=== PATIENT | male | born 1945 | race Caucasian/White ===

== ENCOUNTER 2018-10-04 10:12 | Observation (INO) | payer MEDICARE, OTHER ==
[2018-10-04] MEDS ORDERED: Nitroglycerin TAB 0.4 MG* 0.4 MG TAB SL ONE (10:37)
--- NOTE | 2018-10-04 10:37 | ED ---
HPI Chest Pain - HPI Summary HPI Summary: 73 year old M presenting to [facility] complains of midsternal chest pain that has subsided to mild discomfort that does not radiate to back since 04:00 this morning while sleeping. The patient rates the pain 2/10 in severity. Symptoms aggravated by nothing. Symptoms alleviated by nothing. Patient reports left elbow pain. He also reports shortness of breath while coming up the stairs last night. Patient denies fever, chills, erythema of eyes, sore throat, cough, abdominal pain, nausea, vomiting, dysuria, hematuria, myalgia, edema, rash, and dizziness. 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 Patient notes similar episode in [place], [place] 3 weeks ago. He had an angiogram done there and was put on BP medication that has provided relief. - History of Current Complaint Chief Complaint: EDChestPainROMI Time Seen by Provider: 10/04/18 10:27 Hx Obtained From: Patient Onset/Duration: Started Hours Ago - 6, Still Present Current Severity: Mild Pain Intensity: 2 Pain Scale Used: 0-10 Numeric Chest Pain Location: Mid Sternal Chest Pain Radiates: No Aggravating Factor(s): Nothing Alleviating Factor(s): Nothing Associated Signs and Symptoms: Positive: Negative - fever, chills, erythema of eyes, sore throat, cough, abdominal pain, nausea, vomiting, dysuria, hematuria, myalgia, edema, rash, and dizziness., Other: - left elbow pain, reports shortness of breath while coming up the stairs last night - Allergy/Home Medications Allergies/Adverse Reactions: Allergies Allergy/AdvReac Type Severity Reaction Status Date / Time No Known Allergies Allergy Verified 10/04/18 10:20 Home Medications: Home Medications Aspirin [Aspirin EC] 81 mg PO DAILY 10/04/18 [History Confirmed 10/04/18] Atorvastatin* [Lipitor*] 20 mg PO DAILY 10/04/18 [History Confirmed 10/04/18] Clopidogrel TAB* [Plavix TAB*] 75 mg PO DAILY 10/04/18 [History Confirmed ] Isosorbide Mononitrate ER TAB* [Imdur ER TAB*] 15 mg PO DAILY 10/04/18 [History Confirmed 10/04/18] PMH/Surg Hx/FS Hx/Imm Hx Endocrine/Hematology History: Denies: Hx Diabetes Sensory History: Reports: Hx Contacts or Glasses - OCC GLASSES Denies: Hx Hearing Aid Opthamlomology History: Reports: Hx Contacts or Glasses - OCC GLASSES - Cancer History Cancer Type, Location and Year: NON-HODGKINS LYMPHOMA 2011 Hx Chemotherapy: Yes - 2010 - Surgical History Surgery Procedure, Year, and Place: APPENDECTOMY A CHILD Hx Anesthesia Reactions: No Infectious Disease History: No Infectious Disease History: Denies: Traveled Outside the [place] in Last 30 Days - Family History Known Family History: Positive: Cardiac Disease - grandfather of [place], Diabetes - father - Social History Alcohol Use: Occasionally Substance Use Type: Reports: None Smoking Status (MU): Former Smoker Have You Smoked in the Last Year: No Review of Systems Negative: Fever, Chills Negative: Erythema Negative: Sore Throat Positive: Chest Pain Positive: Shortness Of Breath. Negative: Cough Negative: Abdominal Pain, Vomiting, Nausea Negative: dysuria, hematuria Positive: Other - left elbow pain. Negative: Myalgia, Edema Negative: Rash Neurological: Negative - Dizziness All Other Systems Reviewed And Are Negative: Yes Physical Exam - Summary Physical Exam Summary: Constitutional: Well-developed, Well-nourished, Alert. (-) Distressed Skin: Warm, Dry HENT: Normocephalic; Atraumatic Eyes: Conjunctiva normal Neck: Musculoskeletal ROM normal neck. (-) JVD, (-) Stridor, (-) Tracheal deviation Cardio: Rhythm regular, rate normal, Heart sounds normal; Intact distal pulses; The pedal pulses are 2+ and symmetric. Radial pulses are 2+ and symmetric. (-) Murmur Pulmonary/Chest wall: Effort normal. (-) Respiratory distress, (-) Wheezes, (-) Rales Abd: Soft, (-) tenderness, (-) Distension, (-) Guarding, (-) Rebound Musculoskeletal: (-) Edema Lymph: (-) Cervical adenopathy Neuro: Alert, Oriented x3 Psych: Mood and affect Normal Triage Information Reviewed: Yes Vital Signs On Initial Exam: Initial Vitals Temp Pulse Resp BP Pulse Ox 97.9 F 65 16 106/83 100 10/04/18 10:16 10/04/18 10:16 10/04/18 10:16 10/04/18 10:16 10/04/18 10:16 Vital Signs Reviewed: Yes Diagnostics - Vital Signs Vital Signs Temp Pulse Resp BP Pulse Ox 10/04/18 10:16 97.9 F 65 16 106/83 100 - Laboratory Result Diagrams: 10/04/18 11:00 10/04/18 11:00 Lab Statement: Any lab studies that have been ordered have been reviewed, and results considered in the medical decision making process. - Radiology CXR Radiology Interpretation Completed By: Radiologist Summary of Radiographic Findings: 1. Stigmata of obstructive lung disease. 2. No radiographic findings to suggest thoracic lymphadenopathy. 3. No acute cardiopulmonary process evident. ED physician has reviewed this report. - EKG 1025 Cardiac Rate: Bradycardia - 49 BPM EKG Rhythm: Sinus Bradycardia Summary of EKG Findings: NONSTEMI - Additional Comments Diagnostic Additional Comments: CTA CHEST shows 1. Negative for pulmonary embolism. 2. No evidence for acute intrathoracic disease. 3. Negative for thoracic lymphadenopathy. 4. Incidental note of bilateral small nonobstructing calyceal renal stones at the partially visualized kidneys. ED physician has reviewed this report. Re-Evaluation - Re-Evaluation First Eval Re-Evaluation Time: 12:01 Change: Improved Comment: Patient rates 1/10 chest pressure. Chest Pain Course/Dx - Course Course Of Treatment: 73 year old M presenting to [facility] complains of midsternal chest pain that has subsided to mild discomfort that does not radiate to back since 04:00 this morning while sleeping. Reviewed outside medical records from [facility] in [place]. Patient had cardiac catherization on 09/08/18 which was normal other than 50% stenosis of the mid left circumflex. CXR showed 1. Stigmata of obstructive lung disease. 2. No radiographic findings to suggest thoracic lymphadenopathy. 3. No acute cardiopulmonary process evident. CTA CHEST shows 1. Negative for pulmonary embolism. 2. No evidence for acute intrathoracic disease. 3. Negative for thoracic lymphadenopathy. 4. Incidental note of bilateral small nonobstructing calyceal renal stones at the partially visualized kidneys. Labs were remarkable for troponin 0.04. In ED course, patient was given NTG. Spoke with Dr. Sinha, hospitalist, who agrees to admit patient. The patient will be admitted to the hospitalist. He is agreeable to this plan. - Diagnoses Provider Diagnoses: Unstable angina - Provider Notifications Discussed Care Of Patient With: Courtney Sinha Time Discussed With Above Provider: 14:30 Instructed by Provider To: Other - Dr. Sinha, hospitalist, agrees to admit patient. Discharge - Sign-Out/Discharge Documenting (check all that apply): Patient Departure - Admit Patient Received Moderate/Deep Sedation with Procedure: No - Discharge Plan Condition: Stable Disposition: ADMITTED TO [facility] Referrals: Matthew Adam MD [Primary Care Provider] - - Attestation Statements Document Initiated by Scribe: Yes Documenting Scribe: Lacey Watt Provider For Whom Scribe is Documenting (Include Credential): Zain Mcintyre MD Scribe Attestation: I, Lacey Watt, scribed for Zain Mcintyre MD on 10/04/18 at 1554. Status of Scribe Document: Ready
[2018-10-04 11:09] LABS: ABS Basophils 0 10^3/ul (0-0.2); ABS Eosinophils 0.1 10^3/ul (0-0.6); ABS Monocytes 0.4 10^3/ul (0-0.8); ABS Neutrophils 2.8 10^3/ul (1.5-7.7); ABS Nucleated RBC 0 10^3/ul; Eosinophil % 2.6 %; Hematocrit 39 % (36-46); Hemoglobin 13.4 g/dL (14.0-18.0); Lymphocyte % 23.4 %; Mean Corpuscular HGB Conc 34 g/dL (31-36); Mean Corpuscular Hemoglobin 31 pg (27-31); Mean Corpuscular Volume 92 fL (80-94); Mean Platelet Volume 9.1 fL (7.4-10.4); Nucleated Red Blood Cells % 0.1; Platelet Count 188 10^3/uL (150-450); Red Cell Distribution Width 14 % (10.5-15); White Blood Count 4.4 10^3/uL (3.5-10.8)
[2018-10-04 11:30] LABS: Troponin I 0.03 ng/mL (<0.04)
[2018-10-04 11:33] LABS: Albumin 4.1 g/dL (3.2-5.2); Albumin/Globulin Ratio 1.5 (1-3); Calcium 9.2 mg/dL (8.6-10.3); EGFR African American 71.8 (>60); EGFR Non-African American 59.3 (>60); Globulin 2.7 g/dL (2-4); Potassium 4.1 mmol/L (3.5-5.0); Total Protein 6.8 g/dL (6.4-8.9)
[2018-10-04] MEDS ORDERED: Nitro 2% OINT* (Nitroglycerin) 1 INCH/PAK PAK TOPICAL ONE (11:40)
[2018-10-04] MEDS ORDERED: Iodixanol* (CONTRAST) 320 MG/ML 100 ML SDV IV ONE (12:06)
[2018-10-04 14:29] LABS: Troponin I 0.04 ng/mL (<0.04)
[2018-10-04] MEDS ORDERED: Acetaminophen TAB* 325 MG PO PRN (14:53)
[2018-10-04] MEDS ORDERED: Lidocaine 2% VISCOUS* 15 ML UDC PO ONE (14:57)
[2018-10-04] MEDS ORDERED: Al Hydrox/Mg Hydrox/Simet LIQ* 30 ML UDC PO ONE (14:57)
[2018-10-04] MEDS: Enoxaparin(*) 40 MG/0.4 ML SYR SUBCUT SCH (17:56)
--- NOTE | 2018-10-04 19:36 | HP ---
CC: Dr. Adam * HISTORY AND PHYSICAL: DATE OF ADMISSION: 10/04/18 PROVIDER: Shannon Merrill NP PRIMARY CARE PROVIDER: Matthew Adam MD ATTENDING PHYSICIAN WHILE IN THE HOSPITAL: Courtney Duvall MD * (dictated by Shannon Merrill NP) CHIEF COMPLAINT: Chest pain. HISTORY OF PRESENT ILLNESS: Mr. Shi is a 73-year-old male with a past medical history significant for CAD, hyperlipidemia, hypertension, history of non-Hodgkin's lymphoma, who recently returned from [place] approximately 1 week ago. The patient reports that approximately 2 to 3 weeks ago while in [place] on 09/10/18, he had a similar episode of chest pain. He reports the pain was in the midsternal chest, radiated to bilateral elbows, nothing made it better, nothing made it worse. He reports that it felt like a big ball in the center of his chest. Initially, he thought it was indigestion related to overeating, eating shrimp and having alcoholic beverage. The symptoms did not subside, so he presented to the emergency room in [place] for further evaluation. He was subsequently admitted, underwent an echocardiogram and a stress test and ultimately had a cardiac catheterization, which showed left main medium size without significant coronary artery disease, LAD medium size and transapical, several diagonals are seen, no significant disease, left circumflex medium size with mid 50% stenosis, and right coronary artery medium size and dominant with no significant disease. It also showed normal left-sided pressures and showed some small pulmonary artery fistulas, seen from the LAD an incidental finding. The patient reports that after the cardiac catheterization, he was discharged home on Plavix 75 mg p.o. daily, atorvastatin 20 mg p.o. daily, aspirin 81 mg p.o. daily, and isosorbide mononitrate 15 mg p.o. daily. The patient reports that since his discharge, he has been feeling well. They travelled to [place], again coming approximately 1 week ago. He reports that this morning, he woke with chest pain approximately 4 a.m., again feeling like a ball in his chest radiating to his left elbow. Reports the pain as a pressure. He reports that the pain in his elbow subsided before presentation to the emergency room. The patient reports that he was able to do yard work yesterday, raking, he states that he felt good. He did report a little bit of shortness of breath, but no chest pain and he did not get fatigued when raking the yard. He also reports that last evening when walking up a flight of stairs when he got to the top, he felt extremely short of breath and had stopped to catch his breath, but did walk up the stairs again later in the evening and did not have the same symptoms. The patient reports that the nitro did help. While in the emergency room, the patient had routine lab work drawn. He did receive nitro in the emergency room, which he does report relieved some of the pain but not completely. Due to the continued pressure in his chest and chest pain, we were asked to see and evaluate him for admission. PAST MEDICAL HISTORY: 1. Coronary artery disease, recent non-STEMI on 09/10/18. 2. Hyperlipidemia. 3. Hypertension. 4. History of non-Hodgkin's lymphoma. PAST SURGICAL HISTORY: 1. Appendectomy. 2. Prostatectomy. HOME MEDICATIONS: 1. Plavix 75 mg p.o. daily. 2. Atorvastatin 20 mg p.o. daily. 3. Imdur 15 mg p.o. daily. 4. Aspirin 81 mg p.o. daily. ALLERGIES: No known drug allergies. FAMILY HISTORY: Father with a history of an [place] at age 42, developed diabetes and due to diabetic complications at the age of 65. Paternal grandfather had an [place] at the age of 54. Maternal grandfather with laryngeal cancer. SOCIAL HISTORY: The patient reports that he smoked in his 20s for 4 to 5 years and then quit. He does report that he drinks 1 beer daily. He does report daily marijuana use. He is retired. , he lives with his . He is a full code. Surrogate decision maker in the event he is unable to make his own decisions is his . REVIEW OF SYSTEMS: He denies any fevers, chills, unintended weight loss. He does report midsternal chest pain that feels like a pressure in his chest, radiates to his left elbow. Denies any cough or hemoptysis. He does report some mild shortness of breath with exertion, most notable when walking upstairs. Denies any nausea, vomiting, diarrhea, abdominal pain, gross hematuria, dysuria, focal weakness or sensory loss. Denies any arthralgias, myalgias, rashes, lesions, open sores, psychosis, or anxiety. PHYSICAL EXAMINATION GENERAL: At this time, Mr. Shi is a 73-year-old male. He appears the stated age, resting on the stretcher in the emergency room. He does not appear to be in any acute distress. HEENT: Head is atraumatic, normocephalic. Eyes: EOMs are intact. Sclerae anicteric and not pale. Oral mucosa appeared to be moist. NECK: Supple. LUNGS: Clear to auscultation bilaterally. No wheezes, rales, or rhonchi. CARDIAC: S1, S2. Regular rate and rhythm. No murmurs, rubs, or gallops. ABDOMEN: Soft and nontender. Bowel sounds are present x4. EXTREMITIES: Pedal pulses are +2 bilaterally. He is able to move all 4 extremities. He has no lower extremity edema. NEUROLOGIC: He is awake, alert, oriented x3. Speech is clear. Thought process is intact. SKIN: Intact. LABORATORY DATA AND DIAGNOSTIC STUDIES: WBCs are 4.4, RBCs 4.30, hemoglobin 13.4, hematocrit is 39, platelet count 188. Sodium 140, potassium 4.1, chloride 109, carbon dioxide was 25, anion gap was 6, BUN was 18 and creatinine 1.20, which appears to be close to his baseline since 2015. Glucose was 115. Lactic acid 0.7. Calcium 9.2. Total bili was 1.00, ASTs were 21, ALTs were 20, alkaline phosphatase was 53. Troponin is 0.03, repeat was 0.04. Chest x-ray, radiologist's impression: Stigmata of obstructive lung disease, no radiographic findings to suggest lymphadenopathy, no acute cardiopulmonary process is evident. He had a CTA of the chest, radiologist's impression: Negative for pulmonary embolism, no evidence of acute intrathoracic disease, negative for thoracic lymphadenopathy, bilateral small nonobstructing calyceal renal stones at the partially visualized kidneys. He had an electrocardiogram, which showed sinus bradycardia at a rate of 49 with minimal depression in lead II, Q-wave inversion in lead III. ASSESSMENT AND PLAN: Mr. Shi is a 73-year-old male with a past medical history significant for recent non-STEMI in August 2018, hyperlipidemia, hypertension, history of non-Hodgkin's lymphoma as well as a history of sinus cancer, who presented to the emergency room with complaints of midsternal chest pain that radiates to his left elbow. He will be admitted under observation for : 1. Chest pain. We will rule him out for acute coronary syndrome. The patient will be continued on aspirin 81 mg p.o. daily, Plavix 75 mg p.o. daily. We will continue his Imdur 15 mg p.o. daily. I will continue to trend his troponins. I am currently waiting records from [place] as the patient was recently admitted in [facility] in [place] for similar symptoms and chest pain workup. At that time, he had a cardiac catheterization, which showed disease in the left circumflex with 50% stenosis. He will be placed on telemetry and monitored throughout his hospitalization. 2. Hyperlipidemia. He will continue on atorvastatin as previously prescribed. 3. Hypertension. We will continue him on Imdur. 4. DVT prophylaxis. I will place him on Lovenox subcu. 5. Code status. He is a full code. 6. Fluids, electrolytes, and nutrition. He can have a heart-healthy, decaf- okay diet. TIME SPENT: Time spent on this admission was 60 minutes, greater than half the time was spent at the bedside reviewing the events leading thus far to this hospitalization, performing my physical exam, and implementing my plan of care. I have discussed this with my attending, Dr. Courtney Duvall; she is in agreement with my plan. SHANNON MERRILL, DOMI [id number]/[facility] #: [id number] ADDISON
[2018-10-04] MEDS ORDERED: Atorvastatin* 20 MG TAB PO SCH (21:00)
[2018-10-05 06:31] LABS: ABS Basophils 0 10^3/ul (0-0.2); ABS Eosinophils 0.1 10^3/ul (0-0.6); ABS Lymphocytes 1.1 10^3/ul (1.0-4.8); ABS Monocytes 0.4 10^3/ul (0-0.8); ABS Nucleated RBC 0 10^3/ul; Hematocrit 40 % (36-46); Hemoglobin 13.4 g/dL (14.0-18.0); Lymphocyte % 30.7 %; Mean Corpuscular HGB Conc 34 g/dL (31-36); Mean Corpuscular Hemoglobin 31 pg (27-31); Mean Corpuscular Volume 91 fL (80-94); Mean Platelet Volume 9.1 fL (7.4-10.4); Nucleated Red Blood Cells % 0.1; Platelet Count 172 10^3/uL (150-450); Red Blood Count 4.34 10^6 /uL (4.18-5.48); Red Cell Distribution Width 14 % (10.5-15); White Blood Count 3.7 10^3/uL (3.5-10.8)
[2018-10-05 06:53] LABS: Anion Gap 6 mmol/L (2-11); BUN/Creatinine Ratio 13.5 (8-20); Blood Urea Nitrogen 15 mg/dL (6-24); CO2 Carbon Dioxide 26 mmol/L (22-32); Calcium 8.8 mg/dL (8.6-10.3); Chloride 106 mmol/L (101-111); Cholesterol 122 mg/dL; EGFR African American 78.6 (>60); EGFR Non-African American 64.9 (>60); Glucose 88 mg/dL (70-100); HDL Cholesterol 40.8 mg/dL; LDL Cholesterol 65 mg/dL; Sodium 138 mmol/L (135-145); Triglycerides 82 mg/dL
[2018-10-05] MEDS ORDERED: Aspirin EC TAB* 81 MG TAB.EC PO SCH (09:00)
[2018-10-05] MEDS ORDERED: Isosorbide Mononitrate ER TAB* 30 MG PO SCH (09:00)
[2018-10-05] MEDS ORDERED: Atorvastatin* 20 MG TAB PO SCH (09:00)
[2018-10-05] MEDS ORDERED: Clopidogrel TAB* 75 MG PO SCH (09:00)
[2018-10-05] MEDS ORDERED: Al Hydrox/Mg Hydrox/Simet LIQ* 30 ML UDC PO ONE (12:27)
[2018-10-05] MEDS ORDERED: Hyoscyamine TAB* 0.125 MG PO ONE (12:28)
[2018-10-05] MEDS ORDERED: Lidocaine 2% VISCOUS* 15 ML UDC PO ONE (12:31)
[2018-10-05] MEDS ORDERED: Famotidine TAB* 20 MG PO SCH (13:00)
[2018-10-05] MEDS ORDERED: Pantoprazole TAB * 40 MG TAB PO SCH (15:00)
[2018-10-05 15:14] LABS: C Reactive Protein < 1.00 mg/L (<8.01); Creatine Kinase 62 U/L (10-223)
--- NOTE | 2018-10-05 16:29 | CONS ---
CC: Dr. Kirk Osbrone; Dr. Adam, MA CARDIOLOGY CONSULTATION: DATE OF CONSULT: 10/05/18 CONSULTING PROVIDER: Maude Peña NP REASON FOR EVALUATION: Chest pain. HISTORY OF PRESENT ILLNESS: This is a very pleasant 73-year-old gentleman, who says over the last 2 months, he has had some shortness of breath and chest discomfort in his mid abdomen to upper abdomen, sometimes radiating into his chest. These episodes can last for half hour to 1 hour and usually pretty mild, not particularly with exertion. He had the 2 worst episodes occurred after eating beans and tacos and then waking up during the evening after that dinner meal with severe discomfort and pressure, and shortness of breath, in his epigastric area. No associated sour taste or gas, no dyspnea, no diaphoresis. About 3 weeks ago, he had a severe episode waking him up at 4 in the morning after a meal of tacos and beans, which prompted him to go to the emergency room in [place]. There, he was told of a mild elevation of his troponins and underwent cardiac catheterization, which revealed moderate nonobstructive disease, which was evaluated by FFR and felt to be nonobstructive. He was discharged on Plavix, aspirin, and Imdur, and was continued on his Lipitor. The patient has continued to have minor episodes over the last 3 weeks and had another episode that was worse at 4 in the morning after eating [employer] food again, which prompted him to come to the emergency room. His troponins have been 0.03, 0.02. His lipids were acceptable. His EKG showed no diagnostic changes. Because of those symptoms and his ongoing discomfort, a cardiology evaluation was obtained. He denies any positional element to his pain. He seems to think it might be better with exercise. He said he has had some positional lightheadedness and vertigo over the last couple of months, which improved with the Zenaida maneuver. He says other times, he is mildly lightheaded , but he is not quite sure what the circumstances are. He usually walks 3 [place] 4 [address] the [address] at a time when he is in [place] and had no problems doing that even after his ER visit. PAST MEDICAL HISTORY: He has a history of hypertension, hyperlipidemia. MEDICATIONS: His medications as an outpatient include: 1. Aspirin. 2. Atorvastatin 20 mg a day. 3. Plavix 75 mg a day. 4. Isosorbide 15 mg a day. As an inpatient, he is also on enoxaparin 40 mg q.24. ALLERGIES: He has no known drug allergies. SOCIAL HISTORY: He drinks 1 to 2 alcoholic beverages a night. He drinks 1 to 2 cups of coffee a night. He is , has 4 adult children. He is a retired high school foreign language teacher. He reports he stopped tobacco use in the 1970s, but does smoke marijuana. PHYSICAL EXAM: He is a well-developed, well-nourished gentleman, appearing fit , in no apparent distress. Pulse of 50, blood pressure 100/72. No significant JVD. Carotids 2+ without bruits. No cervical adenopathy. Cardiac Exam: S1, S2 without murmurs, gallops, or rubs. Chest was clear. No CVAT. His abdominal aorta was prominent with epigastric bruit and abdominal bruit. Femoral pulses intact without bruits bilaterally. Distal pulses intact. No edema. Motor strength 5/5 bilaterally. Deep tendon reflexes 2/4. Alert and oriented x3. DIAGNOSTIC STUDIES: He had a CT angio, which revealed no evidence of dissection or cardioembolic events. He did have a catheterization performed in [place], normal left main, LAD medium , no significant disease. Circumflex was medium with 50% stenosis. 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 Mr. Shi had a stress test performed today. He had mild resting discomfort. He was able to complete 12 minutes of a Evan to 12.8 METs and achieved 99% of maximum predicted. He had some ST depression and T-wave inversions in recovery and some PVCs and couplets in recovery. His echo revealed EF 55% to 60%, close to 55% at rest with an increase in contractility to 60% to 65% with exercise. There was some mild cavity dilatation; this raises the possibility of a cardiomyopathy, ischemic versus nonischemic. IMPRESSION AND PLAN: My impression is that Mr. Shi has chest discomfort of unclear etiology as well as coronary atherosclerosis thought to be nonobstructive as well as epigastric discomfort and epigastric bruits. This raises possibility of mesenteric ischemia or gastrointestinal issues given the pattern. It is not clear that his chest pain is ischemic or related to the findings on the nuclear. The etiologies of his troponin elevations and cardiomyopathy are uncertain: possibilities include a myocarditis or small vessel disease or alcoholic related process. He also appears to have mild sinus node dysfunction. iFor the time being, I would recommend the followin. I discussed the case with the patient and with Maude Peña. 2. I have recommended starting a PPI for possible gastroesophageal reflux disease. 3. I recommend he avoid vigorous exertion. 4. He is to have ultrasound of his abdomen to evaluate for abdominal aortic aneurysm. 5. He is to have CT angio of his mesenteric arteries to rule out intestinal ischemia. 6. He does have resting low heart rate and blunted heart rate response to exercise. He may be developing symptomatic sinus node dysfunction. If he continues to have symptoms, we will consider an event monitor to document his rhythm during episodes of lightheadedness. 7. I would continue aggressive lipid lowering. 8. It is unclear that he has really responded to the nitrates. It may be worth stopping the nitrates. 9. I raised the possibility that he may be developing an alcoholic cardiomyopathy given his moderate regular alcohol use. I suggest that he decrease and discontinue alcohol use. 10. We will try to obtain the images of his cath and discharge summary and consider a second opinion from an interventionalist at some point. He may need an evaluation for nonischemic cardiomyopathy as well. [id number]/[facility] #: [id number] [place]
[2018-10-05 16:32] VITALS: BP 125/83
[2018-10-05] MEDS: Enoxaparin(*) 40 MG/0.4 ML SYR SUBCUT SCH (16:34)
[2018-10-05] MEDS ORDERED: Iohexol 350* (CONTRAST) 500 ML MDV IV ONE (16:52)
[2018-10-05 17:00] LABS: Erythrocyte Sed Rate 8 mm/Hr (0-19)
--- NOTE | 2018-10-06 01:45 | DS ---
CC: Dr. Matthew Adam; Dr. Kirk Osborne * DISCHARGE SUMMARY: DATE OF ADMISSION: 10/04/18 DATE OF DISCHARGE: 10/05/18 PRIMARY CARE PROVIDER: Dr. Matthew Adam. ATTENDING PHYSICIAN: Dr. Liz López * (dictated by Maude Peña NP). PRIMARY DIAGNOSIS: Chest pain of unclear etiology, no evidence of acute coronary syndrome. SECONDARY DIAGNOSES: 1. Hypertension. 2. Hyperlipidemia. 3. Coronary artery disease with recent non-ST elevation myocardial infarction on 09/10/18. STUDIES WHILE IN THE HOSPITAL: 1. Chest x-ray on 10/04/18 reads as stigmata of obstructive lung disease. No radiographic findings to suggest thoracic lymphadenopathy. No acute cardiopulmonary process evident. 2. EKG on 10/04/18 shows sinus bradycardia with a rate of 49, minimal ST depression most notable in II, inverted T-waves and III. QTc 402. 3. Chest thorax CTA on 10/04/18 reads as negative for pulmonary embolism. No evidence for acute intrathoracic disease. Negative for thoracic lymphadenopathy. Incidental note of bilateral small nonobstructing calyceal renal stones at the partially visualized kidneys. 4. EKG on 10/04/18 shows sinus bradycardia with a rate of 52. 5. Abdomen and pelvis CTA on 10/05/18 reads as atherosclerosis. No abdominal aortic aneurysm. Mild narrowing of the superior mesenteric artery proximally. HISTORY OF PRESENT ILLNESS AND HOSPITAL COURSE: Mr. Shi is a 73-year-old male with past medical history of CAD with recent NSTEMI on 09/10/18, hypertension, hyperlipidemia and non-Hodgkin's lymphoma, who presented to the emergency room on 10/04/18 with complaints of chest pain. Please see the history and physical by Shannon Merrill NP for complete summary of the events leading up to this hospitalization. In short, the patient was recently hospitalized in [place] for an NSTEMI and at that time had a cardiac catheterization showing 50% stenosis of the left circumflex artery, though no other significant disease. He did not have any stent placed at that point. He reported chest pain on arrival to the emergency room, which was similar to that that he experienced during his NSTEMI, though not as severe. The pain was midsternal. There were no aggravating or alleviating factors. No known precipitating factors. The patient reported that the discomfort was typically always present to some extent, though was more severe for an hour and so that is why he presented to the emergency room. In the emergency room, he received nitro which was not effective in relieving his pain because of the concern for a cardiac process, he was admitted by the hospitalist service. The patient was initially noted to have a negative troponin at 0.03, his next troponin was 0.04, though subsequently after that he had 2 additional negative troponins. He was noted to have a lipid panel showing overall good control. Vital signs were stable overnight, though the patient was noted to be consistently bradycardic though asymptomatic. His heart rate was typically in the 50s. There were no arrhythmias noted on telemetry. This morning when I saw the patient, he continued to report the discomfort. He reported that this morning, the chest discomfort was worse after drinking some grape juice, though could not identify any other instances where the pain was precipitated by any p.o. intake. I did speak with Cardiology and it was decided that the patient would undergo a stress echo. Ultimately, the patient was seen in consultation by Dr. Osborne from Cardiology who read his stress echo. During the echo, the patient was noted to have some ST- depression and T-wave inversions in recovery and some PVCs and couplets in recovery. His echo showed an EF of 55% to 60% at rest and 60% to 65% with exertion. He was noted to have some mild cavity dilation concerning for a possible myopathic process, ischemic versus nonischemic. Dr. Osborne did note abdominal bruits on exam and so recommended that the patient undergo imaging to rule out an abdominal aortic aneurysm. Dr. Osborne additionally recommended starting the patient on a PPI for a possible gastroesophageal component to this pain. He felt as though the patient may be developing sinus node dysfunction as evidenced by his bradycardia. He felt as though the patient did not require a nitrate therapy that he was previously placed on. There was some concern that the patient may be developing an alcoholic cardiomyopathy. Additionally, there was concern for mesenteric ischemia. Ultimately, the patient underwent an abdomen and pelvis CTA and results are noted above. I will note that currently the report for the abdomen and pelvis CTA, the impression reads as "abdominal aortic aneurysm" though I spoke with the radiologist who reported that that is a typo and it should read as "no abdominal aortic aneurysm." Primary conversation with Dr. Osborne, he advised that the patient was likely stable for discharge from a cardiac standpoint after ruling out an abdominal aortic aneurysm. The patient is anxious to return home. Mr. Shi is stable for discharge today. Vital signs are as follows: Temp 97.7, heart rate 57, respiratory rate 16, oxygen saturation 97% on room air, blood pressure 125/83. DISCHARGE MEDICATIONS: New medications: 1. Pantoprazole 40 mg p.o. daily. Continued medications: 1. Aspirin 81 mg p.o. daily. 2. Atorvastatin 20 mg p.o. daily. 3. Clopidogrel 75 mg p.o. daily. Discontinued medications: 1. Imdur. DISCHARGE PLAN: Mr. Shi will be discharged home. Activity will be as tolerated, though he has been advised to avoid any vigorous activity per Dr. Osborne's instructions. Diet should be heart healthy. Medications are noted above. The patient has been taken off his nitrates per recommendations from Cardiology as it is not clear that these were effective at relieving his symptoms. Additionally, he was started on a PPI for any gastroesophageal component of this pain. He can continue his other usual medications as noted above and I have not made any further changes. He has been advised to abstain from alcohol due to the concern for possible alcoholic cardiomyopathy though at this point, the patient has a negative ESR and CRP, so I have low suspicion for that. The patient will need to follow up with Cardiology. He may follow up with Dr. Osborne, though he did report to me that he may possibly follow up with a county tax assessor at [place]. In either case, I strongly advised him that he needs to follow up with Cardiology for further workup and management of his chest pain. He would likely benefit from an event monitor because of his bradycardia and possible concern for sinus node dysfunction. He should follow up with his primary care provider in 4 to 7 days. The patient has been advised to return to the emergency room or nearest hospital for any worsening of symptoms, shortness of breath, lightheadedness, dizziness, chest discomfort, high fever, chills, night sweats, loss of consciousness, or any other worrisome signs or symptoms. DISCHARGE CONDITION: Stable. DISCHARGE DISPOSITION: Home. This is a summarized report of a complex medical history and hospital stay. For further details, please see the entire medical record. TIME SPENT: Approximately 50 minutes was spent on this discharge. MAUDE PEÑA, APPEALS ANALYST [id number]/[facility] #: [id number] [facility]
== END 2018-10-05 18:20 | disposition home or self-care (01) ==
LOC: ED 10:12 → MEDTELE 14:53
PROVIDERS: ADMIT Internal Medicine; ATTEND Internal Medicine
DX: R07.9 Chest pain, unspecified (principal); I25.10 Atherosclerotic heart disease of native coronary artery without angina pectoris; E78.5 Hyperlipidemia, unspecified; I10 Essential (primary) hypertension; Z85.72 Personal history of non-Hodgkin lymphomas; Z79.82 Long term (current) use of aspirin; R10.9 Unspecified abdominal pain
CPT/HCPCS: 36415; 71045; 71275; 74174; 80048; 80053; 80061; 82550; 82607; 83605; 84484; 85025; 85652; 86140; 93005; 93017; 96372; 99283; A9270-GY; G0378; J1650; Q9967